=== PATIENT | female | born 1995 | race Two or more races ===

== ENCOUNTER 2024-12-14 10:33 | Emergency (ER) | payer MEDICAID, SELFPAY ==
[2024-12-14 10:45] VITALS: BP 145/96; PULSE 64; RESP 18; TEMP 36.8; O2SAT 100
--- NOTE | 2024-12-14 10:51 | XR_ITS ---
Examination: Pelvic ultrasound, transabdominal, complete Technique: Transabdominal ultrasound of the pelvis performed using grayscale imaging Date and time of exam: December 14, 2024 11:00 AM INDICATIONS: Vaginal bleeding and pelvic cramping beginning 2 months ago. FINDINGS: Uterus 8.9 cm endometrial stripe 0.4 cm No uterine mass or intrauterine gestation. Right ovary 3.0 cm arterial flow 12 mm follicular cyst Left ovary 3.8 cm arterial flow IMPRESSION: Negative study
--- NOTE | 2024-12-14 10:53 | PD.EDRME ---
Rapid Medical Screening Exam RME Arrival date/time: 12/14/24 10:33 29-year-old female with no known medical history presents to the emergency room with a chief complaint of vaginal bleeding and lower pelvic pain x 2 weeks. I have greeted and performed a focused initial assessment of this patient. A comprehensive ED assessment and evaluation of the patient, analysis of all test results, and completion of the medical decision making process will be conducted by additional ED providers. Chief Complaint: Vaginal Bleeding Time Seen by Provider: 12/14/24 10:40 Vital signs: Vital Signs Temperature 98.3 F 12/14/24 10:45 Pulse Rate 64 12/14/24 10:45 Respiratory Rate 18 12/14/24 10:45 Blood Pressure 145/96 H 12/14/24 10:45 Pulse Oximetry (%) 100 12/14/24 10:45 Oxygen Delivery Method Room Air 12/14/24 10:45 Vital signs reviewed by provider: Yes
[2024-12-14 11:10] LABS: Basophils # (Auto) 0.1 Thou/mm3 (0.0-0.2); Basophils % (Auto) 1 % (0-2.5); Eosinophils # (Auto) 0.1 Thou/mm3 (0.0-0.5); Eosinophils % (Auto) 1 % (0-10); Hematocrit 37.1 % (36.0-46.0); Hemoglobin 11.9 g/dL (12.0-16.0); Immature Granulocytes Auto 0.01 Thou/mm3 (0.00-0.00); Lymphocytes # (Auto) 2.5 Thou/mm3 (1.0-4.8); Lymphocytes % (Auto) 29 % (10-50); Mean Corpuscular HGB Conc 32.1 g/dl (31.0-37.0); Mean Corpuscular Hemoglobin 27.5 pg (25.0-35.0); Mean Corpuscular Volume 86 fL (80-100); Monocytes # (Auto) 0.6 Thou/mm3 (0.0-0.8); Monocytes % (Auto) 8 % (0-12); Neutrophils # (Auto) 5.3 Thou/mm3 (1.8-7.7); Neutrophils % (Auto) 61 % (37-80); Nucleated Red Blood Cell # 0.00 Thou/mm3 (0.00-0.00); Nucleated Red Blood Cell % 0 /100 WBC (0); Platelet Count 294 Thou/mm3 (140-440); RDW Standard Deviation 50.0 fL (36.4-46.3); Red Blood Count 4.32 Miln/mm3 (4.00-5.20); White Blood Count 8.6 Thou/mm3 (3.6-11.0)
[2024-12-14 11:29] LABS: Alanine Aminotransferase 16 U/L (10-49); Albumin, Serum 4.4 gm/dL (3.5-5.0); Albumin/Globulin Ratio 1.5 (1.2-2.2); Alkaline Phosphatase 56 U/L (46-116); Anion Gap 9 (7-16); Aspartate Amino Transferase 15 U/L (0-34); BUN/Creatinine Ratio 15 Ratio (12-20); Bilirubin,Total 0.4 mg/dL (0.3-1.2); Blood Urea Nitrogen 12 mg/dL (9-23); Calcium 9.3 mg/dL (8.3-10.6); Calcium (Corrected) 9.3 mg/dL (8.5-10.1); Carbon Dioxide 25.8 mMol/L (20.0-31.0); Chloride 107 mMol/L (98-107); Creatinine (Component) 0.8 mg/dL (0.6-1.3); Globulin 3.0 gm/dL (2.3-3.5); Glucose 84 mg/dL (74-106); Osmolality,Calculated 281 (275-295); Potassium 3.6 mMol/L (3.4-5.1); Sodium 142 mMol/L (136-145); Total Protein 7.4 gm/dL (5.7-8.2); eGFR > 60 See Note
--- NOTE | 2024-12-14 12:50 | PD.EDRME ---
Rapid Medical Screening Exam RME Arrival date/time: 12/14/24 10:33 12/14/24 10:33 29-year-old female with no known medical history presents to the emergency room with a chief complaint of vaginal bleeding and lower pelvic pain x 2 weeks. I have greeted and performed a focused initial assessment of this patient. A comprehensive ED assessment and evaluation of the patient, analysis of all test results, and completion of the medical decision making process will be conducted by additional ED providers. Chief Complaint: Vaginal Bleeding Time Seen by Provider: 12/14/24 10:40 Vital signs: Vital Signs Temperature 98.3 F 12/14/24 10:45 Pulse Rate 64 12/14/24 10:45 Respiratory Rate 18 12/14/24 10:45 Blood Pressure 145/96 H 12/14/24 10:45 Pulse Oximetry (%) 100 12/14/24 10:45 Oxygen Delivery Method Room Air 12/14/24 10:45 RME Narrative: 12/14/24 10:33 29-year-old female with no known medical history presents to the emergency room with a chief complaint of vaginal bleeding and lower pelvic pain x 2 weeks. I have greeted and performed a focused initial assessment of this patient. A comprehensive ED assessment and evaluation of the patient, analysis of all test results, and completion of the medical decision making process will be conducted by additional ED providers.
[2024-12-14 13:11] LABS: Collection Type, Urine Clean Catch; Squamous Epithelial Cell,Urine 0 /hpf (0-5)
[2024-12-14 13:16] LABS: HCG Qualitative,Urine Negative
[2024-12-14 13:20] LABS: Bilirubin,Urine Negative (Negative); Blood,Urine Negative (Negative); Clarity,Urine Clear (Clear/Hazy); Color,Urine Lt-Yellow (Lt Yel-Yel); Culture Indicated,Urine Not Indicated; Glucose, Urine Negative (Negative); Ketones,Urine Negative (Negative); Leukocyte Esterase,Urine Negative (Negative); Nitrite,Urine Negative (Negative); PH,Urine 6.5 (5.0-7.0); Protein,Urine Negative (Neg - Trace); RBC,Urine 2 /hpf (0-3); Specific Gravity,Urine 1.016 (1.001-1.035); Urobilinogen,Urine Negative mg/dL (0.0-1.0); WBC,Urine < 1 /hpf (0-5)
--- NOTE | 2024-12-14 14:11 | EDNOTE_ITS ---
ED OB Contraction Preg RMI/HPI General Chief complaint: Vaginal Bleeding Stated complaint: Vaginal bleeding since 09/30/24 Time Seen by Provider: 12/14/24 10:40 Arrival date/time: 12/14/24 10:33 RME / HPI RME / HPI Narrative: 12/14/24 10:33 29-year-old female with no known medical history presents to the emergency room with a chief complaint of vaginal bleeding and lower pelvic pain x 2 weeks. I have greeted and performed a focused initial assessment of this patient. A comprehensive ED assessment and evaluation of the patient, analysis of all test results, and completion of the medical decision making process will be conducted by additional ED providers. DR. MEREDITH MAIN ED EVALUATION 29 year old female with no stated medical history presents to the ED for evaluation of vaginal bleeding associated with abdominal pelvic cramping today. Reportedly bleeding and cramping pain has remained constant since receiving the Depo-Provera control injection on 09/30/2024. However, noted the pain to be worse today. States she has consulted her PCP on 11/05/2024 who advised if the bleeding and pain does not resolve by December, they would switch the control. No other associated symptoms reported. Related Data Home Medications ?Medication ?Instructions ?Recorded ?Confirmed prenat.vits,teresa,[id number] 1 tab PO QDAY 08/29/17 09/27/23 ( Vitamin tablet) Allergies Allergy/AdvReac Type Severity Reaction Status Date / Time No Known Allergies Allergy Verified 12/14/24 10:39 Review of Systems Review of Systems Systems Reviewed: All systems reviewed, normal except as documented Past Medical History Past Medical History CARDIAC: Positive Hypertension (FATHER) GASTROINTESTINAL: Positive Hepatitis ENDOCRINE: Positive Diabetes Mellitus Type 2 (MOTHER) Family History FAMILY HISTORY: Positive Family Cardiac Disorders Surgical History SURGICAL: Negative Section Social History SMOKING STATUS: Never smoker SECOND HAND EXPOSURE: No ED Exam Narrative Physical exam: GENERAL APPEARANCE:? alert and oriented x 4, well-developed, well-nourished, no acute distress HEENT: normocephalic, atraumatic NECK: supple LUNGS: no respiratory distress, normal effort HEART: good peripheral perfusion ABDOMEN: non distended EXTREMITIES:? atraumatic NEUROLOGIC: awake; alert and oriented x4; cranial nerves II-XII grossly intact PSYCHIATRIC:? appropriate mood and affect SKIN: warm, dry, normal color; no rashes Course Quality Measures none Orders Category Date Time Status US pelvic complete Stat Exams 12/14/24 10:51 Completed CBC Stat Lab 12/14/24 11:02 Completed CMP [Comprehensive Metabolic Panel] Stat Lab 12/14/24 11:02 Completed HCG Qualitative,Urine Stat Lab 12/14/24 12:54 Completed UA, C/S IF [Urinalysis, C/S if Indicated] Stat Lab 12/14/24 12:54 Completed Ketorolac Inj [Toradol Inj] Med 12/14/24 14:12 Discontinued 30 mg IM X1 ONE Vital Signs Vital signs: Vital Signs Temperature 98.3 F 12/14/24 10:45 Pulse Rate 64 12/14/24 10:45 Respiratory Rate 18 12/14/24 10:45 Blood Pressure 145/96 H 12/14/24 10:45 Pulse Oximetry (%) 100 12/14/24 10:45 Oxygen Delivery Method Room Air 12/14/24 10:45 Pulse ox is 100% on room air which is adequate. Vaginal Bleeding MDM Narrative MDM Narrative: Mary Dewey am scribing for and in the presence of Dr. Meredith. Patient data External records reviewed:: [facility] previous records (I reviewed ED visit on 10/07/2023 ) Clinical information provided by:: patient Social determinants that could affect healthcare access:: none Patient has the following chronic illnesses:: None How is presenting disease/condition affected by chronic disease/condition?: no chronic disease Evaluation data The following diagnostics were reviewed and interpreted by me:: lab results and radiology exam(s) Lab and/or radiology exams considered but not ordered:: None Interpretation Summary: Ordering Physician: Amos Green Date of Service: 12/14/24 Procedure(s): US pelvic complete Accession Number(s): [id number] cc: Amos Green; Moisés Trimble MD; Tomasz Izquierdo MD~ Examination: Pelvic ultrasound, transabdominal, complete Technique: Transabdominal ultrasound of the pelvis performed using grayscale imaging Date and time of exam: December 14, 2024 11:00 AM INDICATIONS: Vaginal bleeding and pelvic cramping beginning 2 months ago. FINDINGS: Uterus 8.9 cm endometrial stripe 0.4 cm No uterine mass or intrauterine gestation. Right ovary 3.0 cm arterial flow 12 mm follicular cyst Left ovary 3.8 cm arterial flow IMPRESSION: Negative study Dictated By: Tomasz Izquierdo MD Signed By: <Electronically signed by Tomasz Izquierdo MD in OV> 12/14/24 1136 Medications / Prescriptions Medications or Prescriptions considered but not ordered:: None Medication administrations:: Medication Administration History Discontinued Medications Ketorolac Tromethamine (Ketorolac Inj 30 Mg/Ml Vial) 30 mg IM X1 ONE Stop: 12/14/24 14:13 See above Consultations Consultation(s) initiated? (list below): No Diagnosis Vaginal Bleeding Differential Diagnosis: dysfunctional uterine bleeding, menometrorrhagia and vaginal bleeding Most likely diagnosis given after review of the tests above:: Vaginal bleeding Admission Indicated Admission indicated?: not indicated Admission Request Was there a request for admission?: No Disposition Plan Disposition Plan: Discharge Discharge Attestation Discharge Attestation: The patient and all family members were given an opportunity to ask questions and understood the discharge instructions. Discharge instructions specifically effects, indications for sooner follow up or return to the emergency department, and the expected course of current diagnosis. Patient condition: Stable Discharge Plan Plan Patient Disposition: HOME (Self Care) Prescriptions/Referrals Prescriptions/Med Rec: No Action Vitamin Tablet 1 tab PO QDAY Referrals: Moisés Trimble MD [Primary Care Provider, Family Practice] - In 1 week Problem List Clinical Impression: Vaginal bleeding Patient/Caregiver Discharge Instructions Education Materials: Understanding Uterine Bleeding Print Language: Slovak Stand Alone Forms: Leyda Award Info., Patient Portal Info Letter
[2024-12-14 14:25] VITALS: BP 141/90; PULSE 59; RESP 18; TEMP 37; O2SAT 98
[2024-12-14] MEDS: KETOROLAC INJ 30 MG/ML VIAL IM (14:49)
== END 2024-12-14 15:05 | disposition home or self-care (01) ==
PROVIDERS: Nurse Practitioner Family; Emergency Provider Emergency Medicine; PCP Family Medicine
DX: N93.9 Abnormal uterine and vaginal bleeding, unspecified (principal)
CPT/HCPCS: 36415; 76856; 80053; 81001; 81025; 85025; 96372; 99283; J1885